=== PATIENT | male | born 2000 | race Caucasian/White ===

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

== ENCOUNTER 2019-02-19 19:22 | Emergency (ER) | payer SELFPAY ==
[~2019-02-19] VITALS: Ht 185.4 cm; Wt 93.9 kg
[~2019-02-19 19:22] MED LIST changes: +CEPHALEXIN500 M1 PO
[2019-02-19] MEDS ORDERED: CEPHALEXIN500 M1 PO (20:24)
== END 2019-02-19 20:41 | disposition home or self-care (01) ==
LOC: ED 19:22
DX: T23.571A Corrosion of first degree of right wrist, initial encounter (principal); T23.572A Corrosion of first degree of left wrist, initial encounter; T54.3X1A Toxic effect of corrosive alkalis and alkali-like substances, accidental (unintentional), initial encounter; Y93.89 Activity, other specified; Y92.89 Other specified places as the place of occurrence of the external cause; Y99.0 Civilian activity done for income or pay

== ENCOUNTER 2022-11-15 17:17 | Emergency (ER) | payer SELFPAY ==
[~2022-11-15] VITALS: Ht 187.9 cm; Wt 127.0 kg
== END 2022-11-15 19:24 | disposition home or self-care (01) ==
LOC: ED 17:17
DX: H10.9 Unspecified conjunctivitis (principal); Z90.89 Acquired absence of other organs; Z98.890 Other specified postprocedural states

== ENCOUNTER 2023-01-07 19:00 | Emergency (ER) | payer SELFPAY ==
[~2023-01-07] VITALS: Ht 185.4 cm; Wt 136.1 kg
[2023-01-07 19:58] LABS: BASO % 0.2 % (0.0-1.0); HEMATOCRIT 45.4 % (42.0-52.0); LYMPH # 0.8 10*3/uL (1.3-4.4); LYMPH % 7.3 % (27.0-41.0); MEAN CELL VOLUME 89.4 fl (80.0-94.0); MEAN CORPUSCULAR HGB 31.7 pg (27.0-31.0); MEAN CORPUSCULAR HGB CONC 35.5 g/dl (33.0-37.0); MEAN PLATELET VOLUME 10.2 fl (9.6-12.3); MONO # 0.7 10*3/uL (0.1-1.0); MONO % 6.6 % (3.0-9.0); NEUT # 9.4 10*3/uL (2.3-7.9); NEUT % 85.6 % (47.0-73.0); PLATELET COUNT AUTOMATED 215 10*3/uL (130-400); RED BLOOD COUNT 5.08 10*6/uL (4.50-5.90); RED CELL DISTRI WIDTH 11.6 % (0-14.5)
[2023-01-07 20:19] LABS: ALKALINE PHOSPHATASE 56 U/L (46-116); BUN 7 mg/dl (9-23); CHLORIDE 104 mmol/L (98-107); POTASSIUM 3.4 mmol/L (3.4-5.1); SGPT/ALT 21 U/L (10-49); TOTAL PROTEIN 7.8 gm/dL (6.0-8.0)
[2023-01-07] MEDS ORDERED: CIPRO500 MG PO (22:56)
[2023-01-07] MEDS ORDERED: METRONIDAZOLE500 M1 PO (22:56)
== END 2023-01-08 00:13 | disposition home or self-care (01) ==
LOC: ED 19:00
PROVIDERS: Nurse Practitioner
DX: K52.9 Noninfective gastroenteritis and colitis, unspecified (principal); R50.9 Fever, unspecified; R51.9 Headache, unspecified; Z90.89 Acquired absence of other organs; Z98.890 Other specified postprocedural states; Z20.822 Contact with and (suspected) exposure to COVID-19

== ENCOUNTER 2024-12-14 18:03 | Emergency (ER) | payer SELFPAY ==
[~2024-12-14] VITALS: Ht 190.5 cm; Wt 163.3 kg
[~2024-12-14 18:03] MED LIST changes: +CIPRO500 MG PO; +METRONIDAZOLE500 M1 PO
[2024-12-14] MEDS ORDERED: Acetaminophen/Hydrocodone 5 MG/325 MG TABLET PO ONE (20:05)
[2024-12-14] MEDS ORDERED: Tdap Vaccine 0.5 ML SYR (Adult Vaccine) IM ONE (21:40)
[2024-12-14] MEDS ORDERED: Bacitracin Zinc 14 GM TUBE T ONE (21:40)
== END 2024-12-14 22:05 | disposition home or self-care (01) ==
LOC: ED 18:03
DX: S51.011A Laceration without foreign body of right elbow, initial encounter (principal); S01.01XA Laceration without foreign body of scalp, initial encounter; V86.99XA Unspecified occupant of other special all-terrain or other off-road motor vehicle injured in nontraffic accident, initial encounter; Y93.89 Activity, other specified; Y92.410 Unspecified street and highway as the place of occurrence of the external cause; Y99.8 Other external cause status